=== PATIENT | male | born 1985 | race Caucasian/White ===

== ENCOUNTER 2017-05-18 10:20 | Outpatient (CLI) | payer OTHER ==
[2017-05-18 19:23] LABS: HEMOGLOBIN A1C 0.59 g/dL
[2017-05-18 20:08] LABS: CHOL/HDL RATIO 4.6 (<5.0); CHOLESTEROL 209 mg/dL; HDL CHOLESTEROL 45 mg/dL; LDL/HDL RATIO 2.7 (<3.6); TRIGLYCERIDES 216 mg/dL; VLDL CHOLESTEROL 43 mg/dL
== END 2017-05-18 10:21 | disposition home or self-care (01) ==
LOC: LAB.WCP 10:20
PROVIDERS: ATTEND Family Medicine
DX: Z00.00 Encounter for general adult medical examination without abnormal findings (principal)
CPT/HCPCS: 36415; 80061; 83036; 84443

== ENCOUNTER 2017-06-26 05:59 | Outpatient (CLI) | payer OTHER | END 2017-06-26 06:00 | disposition E | LOC: EMS 05:59 | PROVIDERS: ATTEND Surgery | DX: T14.8 Other injury of unspecified body region (principal) ==